=== PATIENT | female | born 1965 | race Two or more races ===

== ENCOUNTER 2017-02-10 18:50 | Emergency (ER) | payer OTHER ==
[~2017-02-10] VITALS: Ht 162.6 cm; Wt 61.5 kg
[2017-02-10 18:51] VITALS: BP 126/78
== END 2017-02-10 20:12 | disposition home or self-care (01) ==
LOC: ED 19:45
DX: S39.012A Strain of muscle, fascia and tendon of lower back, initial encounter (principal); M54.16 Radiculopathy, lumbar region; X58.XXXA Exposure to other specified factors, initial encounter; Y93.89 Activity, other specified; Y92.89 Other specified places as the place of occurrence of the external cause; Y99.9 Unspecified external cause status
CPT/HCPCS: 99281

== ENCOUNTER 2017-12-09 20:25 | Emergency (ER) | payer SELFPAY ==
[~2017-12-09] VITALS: Ht 162.6 cm; Wt 61.0 kg
[2017-12-09 20:30] VITALS: BP 124/77
[2017-12-09 21:24] LABS: BASOPHILS # (AUTO) 0.02 x10^3/uL (0-0.1); BASOPHILS % (AUTO) 0 % (0-1); EOSINOPHILS # (AUTO) 0.09 x10^3/uL (0-0.4); EOSINOPHILS % (AUTO) 1 % (1-7); LYMPHOCYTES # (AUTO) 2.37 x10^3/uL (1-3.4); LYMPHOCYTES % (AUTO) 34 % (22-44); MD NO; MEAN CORPUSCULAR HEMOGLOBIN 30.4 pg (27.0-34.8); MEAN CORPUSCULAR HGB CONC 33.9 g/dL (32.4-35.8); MEAN CORPUSCULAR VOLUME 89.8 fL (80-100); MEAN PLATELET VOLUME 9.5 fL (7.4-10.4); MONOCYTES # (AUTO) 0.51 x10^3/uL (0.2-0.8); MONOCYTES % (AUTO) 7 % (2-9); NEUTROPHILS # (AUTO) 4.04 x10^3/uL (1.8-6.8); NEUTROPHILS % (AUTO) 57 % (42-75); PLATELET COUNT 185 x10^3/uL (130-400); RED BLOOD COUNT 4.31 x10^6/uL (3.82-5.3); RED CELL DISTRIBUTION WIDTH 12.3 % (9.6-15.2)
[2017-12-09 21:25] LABS: MICROSCOPIC AUTO
[2017-12-09 21:27] LABS: CULTURE INDICATED? YES
[2017-12-09 21:27] LABS: ALBUMIN 4.1 g/dL (3.4-5.0); ANION GAP 3 mmol/L (5-15); CALCIUM 9.1 mg/dL (8.5-10.1); CHLORIDE 108 mmol/L (98-107); CREATININE 0.96 mg/dL (0.55-1.02)
[2017-12-09] MEDS ORDERED: PHENAZOPYRIDINE 200 MG TABLET ONE (22:22)
[2017-12-09] MEDS ORDERED: PHENAZOPYRIDINE 200 MG TABLET PO ONE (22:30)
== END 2017-12-09 23:06 | disposition home or self-care (01) ==
LOC: ED 22:45
DX: R30.0 Dysuria (principal); R10.9 Unspecified abdominal pain; G89.29 Other chronic pain; M54.5 Low back pain
CPT/HCPCS: 36415; 80048; 81001; 82040; 85025; 87086; 99284